=== PATIENT | male | born 1990 | race Caucasian/White ===

== ENCOUNTER 2017-04-23 16:49 | Emergency (ER) | payer OTHER ==
[2017-04-23] MEDS ORDERED: KETOROLAC TROMETHAMINE 60 MG/2 ML SDV IM ONE (18:17)
--- NOTE | 2017-04-23 18:56 | RADIOLOGY REPORT (SQ) ---
EXAM DESCRIPTION: L SPINE WHOLE COMPLETED DATE/TIME: 04/23/2017 6:38 pm REASON FOR STUDY: back pain COMPARISON: None. NUMBER OF VIEWS: Five views including obliques. TECHNIQUE: AP, lateral, oblique, and sacral radiographic images acquired of the lumbar spine. LIMITATIONS: None. FINDINGS: MINERALIZATION: Normal. SEGMENTATION: Normal. No transitional anatomy. ALIGNMENT: Normal. VERTEBRAE: Maintained height. No fracture or worrisome bone lesion. DISCS: Preserved height. No significant osteophytes or end plate irregularity. POSTERIOR ELEMENTS: Pedicles and facets are intact. No pars defect or posterior arch defects. HARDWARE: None in the spine. PARASPINAL SOFT TISSUES: Normal. PELVIS: Intact as visualized. No fractures or worrisome bone lesions. SI joints intact. OTHER: No other significant finding. IMPRESSION: NORMAL 5 VIEW LUMBAR SPINE. TECHNICAL DOCUMENTATION: JOB ID: [id number] [employer]- All Rights Reserved
--- NOTE | 2017-04-23 18:56 | RADIOLOGY REPORT (SQ) ---
EXAM DESCRIPTION: T SPINE AP/LAT COMPLETED DATE/TIME: 04/23/2017 6:38 pm REASON FOR STUDY: back pain COMPARISON: None. NUMBER OF VIEWS: Two views. TECHNIQUE: AP and lateral radiographic images acquired of the thoracic spine. LIMITATIONS: None. FINDINGS: MINERALIZATION: Normal. ALIGNMENT: Normal. No scoliosis. VERTEBRAE: No fracture or bone lesion. Maintained height, normal segmentation. DISCS: No significant loss of height or significant narrowing. No large osteophytes. HARDWARE: None in the spine. MEDIASTINUM AND SOFT TISSUES: Normal heart size and aortic contour. No soft tissue abnormality. VISUALIZED LUNG LIZAMA: Clear. OTHER: No other significant finding. IMPRESSION: NO SIGNIFICANT RADIOGRAPHIC FINDING IN THE THORACIC SPINE. TECHNICAL DOCUMENTATION: JOB ID: [id number] [employer]- All Rights Reserved
[2017-04-23] MEDS ORDERED: OXYCODONE-ACETAMINOPHEN 5-325 MG TABLET PO ONE (20:20)
--- NOTE | 2017-04-23 20:26 | ER Document Report ---
ED General - General Chief Complaint: Back Pain Stated Complaint: BACK PAIN Time Seen by Provider: 04/23/17 18:07 Information source: Patient Notes: Patient is a 36-year-old male comes emergency room complaining of sudden onset of low back pain. 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 Patient denies any loss of urine or stool any radiation or numbness in the lower extremities. Normal bowel movement prior to coming. Has difficulty with sitting for long periods of time. States on his drive over here was difficult for him to make the trip secondary to the discomfort in the low back. Denies any other medical problems. He is a history of scoliosis and was discharged normally with 20% disability because of that. They cc no one a regular basis for back pain states he has not had a flareup of any kind of pain in several years. TRAVEL OUTSIDE OF THE [place] IN LAST 30 DAYS: No - HPI Patient complains to provider of: Back pain Onset: Just prior to arrival Onset/Duration: Sudden, Constant Quality of pain: Sharp, Throbbing Severity: Moderate Pain Level: 3 Associated symptoms: None Exacerbated by: Sitting, Standing, Movement, Walking Relieved by: Denies Similar symptoms previously: Yes Recently seen / treated by doctor: No - Related Data Allergies/Adverse Reactions: No Known Allergies Allergy (Unverified 04/23/17 17:12) Past Medical History - General Information source: Patient, Friend - Social History Smoking Status: Current Every Day Smoker Cigarette use (# per day): Yes Chew tobacco use (# tins/day): No Smoking Education Provided: Yes - 1 pack per day Frequency of alcohol use: Occasional Drug Abuse: None Family History: Reviewed & Not Pertinent Patient has suicidal ideation: No Patient has homicidal ideation: No Renal/ Medical History: Denies: Hx Peritoneal Dialysis Review of Systems - Review of Systems Constitutional: No symptoms reported EENT: No symptoms reported Cardiovascular: No symptoms reported Respiratory: No symptoms reported Gastrointestinal: No symptoms reported Genitourinary: No symptoms reported Male Genitourinary: No symptoms reported Musculoskeletal: Back pain Skin: No symptoms reported Hematologic/Lymphatic: No symptoms reported Neurological/Psychological: No symptoms reported -: Yes All other systems reviewed and negative Physical Exam - Vital signs Vitals: Temp Pulse Resp BP Pulse Ox 97.7 F 105 H 18 129/81 H 97 04/23/17 17:37 04/23/17 17:37 04/23/17 17:37 04/23/17 17:37 04/23/17 17:37 - General General appearance: Other - Uncomfortable appearing In distress: None - HEENT Head: Normocephalic, Atraumatic - Respiratory Respiratory status: No respiratory distress Chest status: Nontender Breath sounds: Normal. No: Decreased air movement, Nonproductive cough, Productive cough, Rales, Rhonchi, Stridor, Wheezing, Other - Cardiovascular Rhythm: Tachycardia Heart sounds: Normal auscultation Murmur: No - Abdominal Inspection: Normal Distension: No distension Bowel sounds: Normal Tenderness: Nontender Organomegaly: No organomegaly - Extremities General upper extremity: Normal inspection, Normal ROM General lower extremity: Normal inspection, Normal ROM Notes: Examination of patient's lower extremities show not show that he has negative straight leg raises bilaterally he does have good DTRs bilaterally. He has good strength to resistance in all directions with increased discomfort when he does squeezing of the legs. At the knees. Other than that patient has just a normal's discomfort associated with a strain of the low back. He also has good vascular examination in the lower extremities. - Neurological Neuro grossly intact: Yes Cognition: Normal Orientation: AAOx4, Disoriented to events [place] Coma Scale Eye Opening: Spontaneous [place] Coma Scale Verbal: Oriented Daniela Coma Scale Motor: Obeys Commands [place] Coma Scale Total: 15 Speech: Normal - Skin Skin Temperature: Warm Skin Moisture: Dry Skin Color: Normal, [place] Course - Vital Signs Vital signs: Temp Pulse Resp BP Pulse Ox 97.7 F 105 H 18 129/81 H 97 04/23/17 17:37 04/23/17 17:37 04/23/17 17:37 04/23/17 17:37 04/23/17 17:37 - Diagnostic Test Radiology reviewed: Reports reviewed - Readings of the plain films done on patient's lumbar and thoracic spine show no acute problems. - Transfer of Care Notes: 04/23/17 20:26 I have informed patient that with his presentation and will put him on a steroid taper a muscle relaxer and a little pain medication. He understands that if he should have any difficulty or loss of urine or stool cannot control either one is to return to ER at once. At this point I do not believe patient is a presentation of cauda equina. Discharge - Discharge Clinical Impression: Lumbosacral strain Qualifiers: Encounter type: initial encounter Qualified Code(s): S39.012A - Strain of muscle, fascia and tendon of lower back, initial encounter Strain of thoracic spine Qualifiers: Encounter type: initial encounter Qualified Code(s): S29.019A - Strain of muscle and tendon of unspecified wall of thorax, initial encounter Condition: Good Disposition: HOME, SELF-CARE Instructions: Ice Packs ([facility]), Low Back Pain ([facility]), Muscle Relaxers ([facility]), Muscle Strain ([facility]), Oral Narcotic Medication ([facility]) Additional Instructions: Home and rest. Medications prescribed. As we discussed ice only for the next 48 hours on the low back area. You may take a shower that does not get hot enough long enough to bother you. After 48 hours he may start using moist heat as well. May also take 800 mg ibuprofen in between the other medications. Should you have any concerns or problems effusions have loss of urine or stool that is uncontrolled bruises itself out return at once to ER. I am giving the name of the orthopedic doctor requisition approver today he may contact his office to see if he can accommodate you if the pain continues to be troubling. Also as we discussed may consider using a lifting belt to support the back while you do lifting of tires and other heavy implements Prescriptions: Methocarbamol [Robaxin 500 mg Tablet] 1,000 mg PO BID PRN #30 tablet PRN Reason: Oxycodone HCl/Acetaminophen [Percocet 10-325 Mg Tablet] 1 each PO Q6 #15 tablet Prednisone [Sterapred Ds] 1 pkg PO ASDIR PRN 12 Days [id number] PRN Reason: Forms: Return to Work Referrals: AUDREY SPARKS, RN [REGISTERED NURSE] - Follow up as needed
[2017-04-23 20:50] VITALS: BP 142/81
== END 2017-04-23 20:50 | disposition home or self-care (01) ==
LOC: ER 16:49
DX: S39.012A Strain of muscle, fascia and tendon of lower back, initial encounter (principal); S29.019A Strain of muscle and tendon of unspecified wall of thorax, initial encounter; F17.210 Nicotine dependence, cigarettes, uncomplicated; X50.1XXA Overexertion from prolonged static or awkward postures, initial encounter; Y99.0 Civilian activity done for income or pay
CPT/HCPCS: 99283; 96372; 72110; 72070; J1885